=== PATIENT | male | born 1950 | race Caucasian/White ===

== ENCOUNTER 2021-10-03 16:22 | Inpatient (IN) ==
[2021-10-03] MEDS ORDERED: Naloxone 0.4 MG/ML INJ IVP PRN (18:38)
[2021-10-03] MEDS ORDERED: Acetaminophen 325 MG TABLET PO PRN (18:38)
[2021-10-03] MEDS: Ringers Solution, Lactated 1,000 ML IVC SCH (19:26)
[2021-10-03] MEDS: Piperacillin/Tazobactam 3.375 GM in 0.9 % Sodium Chloride Mini Bag 100 ML IVPB SCH (23:01)
[2021-10-04 02:12] LABS: Basophils % 0.1 %; Immature Granulocytes % 0.3 % (0-4)
[2021-10-04 02:15] LABS: Hematocrit 36.4 % (37.5-50.1); Hemoglobin 11.4 g/dL (12.9-16.9); Immature Platelets 5.7 % (1.1-6.1); Lymphocytes % 8.5 %; Mean Corpuscular HGB Conc 31.3 g/dL (31.6-35.5); Mean Corpuscular Hemoglobin 30.7 pg (28.0-33.3); Mean Corpuscular Volume 98.1 fL (83.0-100.0); Mean Platelet Volume 11.5 fL (9.4-12.4); Monocytes # 0.7 K/mcL (0.0-1.3); Monocytes % 5.9 %; Neutrophils # 9.9 K/mcL (1.6-8.9); Red Blood Count 3.71 M/mcL (4.19-5.50); Red Cell Distribution Width 13.9 % (11.5-14.5); Segmented Neutrophils % 85.2 %; White Blood Count 11.6 K/mcL (4.3-11.1)
[2021-10-04 02:19] LABS: Platelet Count 79 K/mcL (140-400)
[2021-10-04 02:49] LABS: Alanine Aminotransferase 138 Units/L (7-52); Albumin 2.7 g/dL (3.5-5.7); Albumin/Globulin Ratio 0.9 (1.1-2.2); Alkaline Phosphatase 48 Units/L (34-104); Aspartate Amino Transferase 346 Units/L (13-39); BUN/Creatinine Ratio 24 (6-26); Bilirubin,Total 0.7 mg/dL (0.3-1.0); Blood Urea Nitrogen 140 mg/dL (8-23); Calcium 7.3 mg/dL (8.6-10.3); Carbon Dioxide 18 mEq/L (23-29); Chloride 124 mEq/L (98-107); Creatine Kinase > 20000 Units/L (30-223); Glucose 112 mg/dL (70-105); Osmolality,Calculated 368 (280-300); Potassium 5.2 mEq/L (3.5-5.1); Sodium 156 mEq/L (136-145); Total Protein 5.7 g/dL (6.4-8.9); eGFR For African Americans 12 (> 60); eGFR For Non-African Americans 10 (> 60)
[2021-10-04] MEDS: Ringers Solution, Lactated 1,000 ML IVC SCH (03:14)
[2021-10-04] MEDS ORDERED: *HR* Enoxaparin 30 MG/0.3 ML SYRINGE SQ SCH (06:00)
[2021-10-04] MEDS: Piperacillin/Tazobactam 3.375 GM in 0.9 % Sodium Chloride Mini Bag 100 ML IVPB SCH ×2 (07:09→17:08)
[2021-10-04] MEDS ORDERED: D5% in 0.45% NACL 1,000 ML IVC SCH (09:30)
[2021-10-04] MEDS ORDERED: Carbidopa/Levodopa 25/100 TABLET PO SCH ×2 (12:00→21:00)
[2021-10-04] MEDS ORDERED: Naloxone 0.4 MG/ML INJ IVP PRN (14:22)
[2021-10-04] MEDS: D5% in 0.45% NACL 1,000 ML IVC SCH ×2 (14:56→23:18)
[2021-10-04] MEDS ORDERED: rOPINIRole 1 MG TABLET PO SCH (15:00)
[2021-10-04 15:33] LABS: Sodium, Urine 50.3 mEq/L
[2021-10-04] MEDS: rOPINIRole 1 MG TABLET PO SCH ×2 (17:07→20:51)
[2021-10-04] MEDS: Carbidopa/Levodopa 25/100 TABLET PO SCH ×2 (17:08→20:52)
[2021-10-04 19:20] LABS: C.difficile Toxin A/B Gene PCR Not detected (Not detect); Campylobacter by PCR Not detected (Not detect); Enteroaggregative E.coli(EAEC) Not detected (Not detect); Plesiomonas shigelloides PCR Not detected (Not detect); Salmonella PCR Not detected (Not detect); Vibrio PCR Not detected (Not detect); Vibrio cholerae PCR Not detected (Not detect); Yersinia enterocolitica PCR Not detected (Not detect)
[2021-10-04 19:21] LABS: Adenovirus F 40/41 PCR Not detected (Not detect); Astrovirus PCR Not detected (Not detect); Cryptosporidium by PCR Not detected (Not detect); Cyclospora cayetanensis PCR Not detected (Not detect); Entamoeba histolytica PCR Not detected (Not detect); Enteropathogenic E.coli(EPEC) DETECTED (Not detect); Enterotoxigenic E.coli (ETEC) Not detected (Not detect); Giardia lamblia PCR Not detected (Not detect); Norovirus GI/GII PCR Not detected (Not detect); Rotavirus A PCR Not detected (Not detect); Sapovirus PCR Not detected (Not detect); Shig/EnteroinvasiveE coli EIEC Not detected (Not detect); Shigalike tox-prod E coli STEC Not detected (Not detect)
[2021-10-05 02:10] LABS: Hematocrit 35.1 % (37.5-50.1); Immature Platelets 5.9 % (1.1-6.1); Mean Corpuscular HGB Conc 31.3 g/dL (31.6-35.5); Mean Corpuscular Hemoglobin 31.1 pg (28.0-33.3); Mean Corpuscular Volume 99.2 fL (83.0-100.0); Mean Platelet Volume 11.9 fL (9.4-12.4); Red Blood Count 3.54 M/mcL (4.19-5.50); Red Cell Distribution Width 13.6 % (11.5-14.5); White Blood Count 11.7 K/mcL (4.3-11.1)
[2021-10-05 02:14] LABS: Platelet Count 63 K/mcL (140-400)
[2021-10-05 02:37] LABS: Lymphocytes # 0.7 K/mcL (0.6-4.6); Monocytes # 0.5 K/mcL (0.0-1.3); Neutrophils # 10.5 K/mcL (1.6-8.9); Platelet Estimate Decreased (Normal)
[2021-10-05 02:47] LABS: Calcium 7.4 mg/dL (8.6-10.3); Potassium 5.2 mEq/L (3.5-5.1)
[2021-10-05] MEDS: Piperacillin/Tazobactam 3.375 GM in 0.9 % Sodium Chloride Mini Bag 100 ML IVPB SCH ×2 (05:59→17:45)
[2021-10-05] MEDS ORDERED: *HR* Enoxaparin 30 MG/0.3 ML SYRINGE SQ SCH (06:00)
[2021-10-05] MEDS ORDERED: Aspirin 81 MG TAB.CHEW PO SCH (09:00)
[2021-10-05] MEDS: Aspirin 81 MG TAB.CHEW PO SCH (12:07)
[2021-10-05] MEDS: D5% in 0.45% NACL 1,000 ML IVC SCH ×2 (12:07→20:20)
[2021-10-05] MEDS: Carbidopa/Levodopa 25/100 TABLET PO SCH ×4 (12:07→20:23)
[2021-10-05] MEDS: rOPINIRole 1 MG TABLET PO SCH ×3 (12:07→20:23)
[2021-10-06] MEDS: D5% in 0.45% NACL 1,000 ML IVC SCH (05:18)
[2021-10-06] MEDS: Piperacillin/Tazobactam 3.375 GM in 0.9 % Sodium Chloride Mini Bag 100 ML IVPB SCH ×2 (05:18→17:54)
[2021-10-06] MEDS ORDERED: E-Z-PAQUE (BARIUM SULF) SUSP 1 BOTTLE PO ONE (10:55)
[2021-10-06] MEDS ORDERED: E-Z-HD (BARIUM SULF) SUSPENSION PO ONE (10:55)
[2021-10-06 11:05] LABS: Basophils % 0.1 %; Eosinophils # 0.1 K/mcL (0.0-0.6); Eosinophils % 1.1 %; Hematocrit 34.5 % (37.5-50.1); Hemoglobin 11.1 g/dL (12.9-16.9); Immature Granulocytes % 0.8 % (0-4); Lymphocytes # 0.7 K/mcL (0.6-4.6); Lymphocytes % 5.4 %; Mean Corpuscular HGB Conc 32.2 g/dL (31.6-35.5); Mean Corpuscular Hemoglobin 31.3 pg (28.0-33.3); Mean Corpuscular Volume 97.2 fL (83.0-100.0); Mean Platelet Volume 12.2 fL (9.4-12.4); Monocytes # 0.5 K/mcL (0.0-1.3); Monocytes % 4.1 %; Red Blood Count 3.55 M/mcL (4.19-5.50); Red Cell Distribution Width 13.9 % (11.5-14.5); Segmented Neutrophils % 88.5 %; White Blood Count 12.4 K/mcL (4.3-11.1)
[2021-10-06 11:07] LABS: Platelet Count 80 K/mcL (140-400)
[2021-10-06 11:28] LABS: Magnesium 2.4 mg/dL (1.6-2.6); Phosphorous 4.6 mg/dL (2.7-4.5)
[2021-10-06 11:54] LABS: Calcium 7.8 mg/dL (8.6-10.3)
[2021-10-06] MEDS: rOPINIRole 1 MG TABLET PO SCH ×3 (12:14→19:32)
[2021-10-06] MEDS: Carbidopa/Levodopa 25/100 TABLET PO SCH ×4 (12:14→19:32)
[2021-10-06] MEDS: Aspirin 81 MG TAB.CHEW PO SCH (12:15)
[2021-10-06] MEDS: D5% in Water 1,000 ML IVC SCH ×2 (14:29→22:22)
[2021-10-07 02:00] LABS: Mean Corpuscular HGB Conc 30.7 g/dL (31.6-35.5); Mean Corpuscular Hemoglobin 31.1 pg (28.0-33.3); Mean Corpuscular Volume 101.2 fL (83.0-100.0)
[2021-10-07 02:02] LABS: Basophils % 0.2 %; Eosinophils # 0.2 K/mcL (0.0-0.6); Eosinophils % 1.5 %; Hematocrit 33.2 % (37.5-50.1); Hemoglobin 10.2 g/dL (12.9-16.9); Immature Granulocytes % 0.7 % (0-4); Immature Platelets 7.3 % (1.1-6.1); Lymphocytes # 0.7 K/mcL (0.6-4.6); Lymphocytes % 6.7 %; Mean Platelet Volume 11.9 fL (9.4-12.4); Monocytes # 0.6 K/mcL (0.0-1.3); Monocytes % 5.3 %; Red Blood Count 3.28 M/mcL (4.19-5.50); Red Cell Distribution Width 13.9 % (11.5-14.5); Segmented Neutrophils % 85.6 %; White Blood Count 10.8 K/mcL (4.3-11.1)
[2021-10-07 02:05] LABS: Neutrophils # 9.2 K/mcL (1.6-8.9); Platelet Count 78 K/mcL (140-400)
[2021-10-07 02:21] LABS: Calcium 7.5 mg/dL (8.6-10.3); Magnesium 2.1 mg/dL (1.6-2.6); Phosphorous 4.3 mg/dL (2.7-4.5); Potassium 4.1 mEq/L (3.5-5.1)
[2021-10-07] MEDS: Piperacillin/Tazobactam 3.375 GM in 0.9 % Sodium Chloride Mini Bag 100 ML IVPB SCH ×2 (05:36→17:59)
[2021-10-07] MEDS: D5% in 0.45% NACL 1,000 ML IVC SCH (07:25)
[2021-10-07] MEDS: rOPINIRole 1 MG TABLET PO SCH ×3 (08:25→19:39)
[2021-10-07] MEDS: D5% in Water 1,000 ML IVC SCH ×2 (08:25→12:15)
[2021-10-07] MEDS: Aspirin 81 MG TAB.CHEW PO SCH (08:26)
[2021-10-07] MEDS: Carbidopa/Levodopa 25/100 TABLET PO SCH ×4 (08:26→19:39)
[2021-10-08] MEDS: D5% in Water 1,000 ML IVC SCH ×2 (01:51→10:11)
[2021-10-08] MEDS: Piperacillin/Tazobactam 3.375 GM in 0.9 % Sodium Chloride Mini Bag 100 ML IVPB SCH ×2 (06:01→17:01)
[2021-10-08] MEDS: Aspirin 81 MG TAB.CHEW PO SCH (07:38)
[2021-10-08] MEDS: rOPINIRole 1 MG TABLET PO SCH ×3 (07:39→19:59)
[2021-10-08] MEDS: Carbidopa/Levodopa 25/100 TABLET PO SCH ×4 (07:39→19:55)
[2021-10-08 08:45] LABS: Potassium 3.7 mEq/L (3.5-5.1)
[2021-10-08 09:12] LABS: Basophils % 0.3 %; Eosinophils # 0.3 K/mcL (0.0-0.6); Eosinophils % 2.1 %; Hematocrit 33.7 % (37.5-50.1); Hemoglobin 10.7 g/dL (12.9-16.9); Immature Granulocytes % 2.1 % (0-4); Lymphocytes # 1.3 K/mcL (0.6-4.6); Lymphocytes % 9.7 %; Mean Corpuscular HGB Conc 31.8 g/dL (31.6-35.5); Mean Corpuscular Volume 97.7 fL (83.0-100.0); Monocytes # 0.6 K/mcL (0.0-1.3); Monocytes % 4.6 %; Neutrophils # 10.6 K/mcL (1.6-8.9); Platelet Count 100 K/mcL (140-400); Red Blood Count 3.45 M/mcL (4.19-5.50); Red Cell Distribution Width 13.7 % (11.5-14.5); Segmented Neutrophils % 81.2 %
[2021-10-08] MEDS: D5% in 0.45% NACL 1,000 ML IVC SCH ×2 (10:20→19:55)
[2021-10-09 02:57] LABS: Basophils % 0.2 %; Eosinophils # 0.2 K/mcL (0.0-0.6); Eosinophils % 1.2 %; Hemoglobin 9.9 g/dL (12.9-16.9); Immature Granulocytes % 1.9 % (0-4); Lymphocytes # 1.1 K/mcL (0.6-4.6); Lymphocytes % 8.7 %; Mean Corpuscular HGB Conc 31.9 g/dL (31.6-35.5); Mean Corpuscular Hemoglobin 31.7 pg (28.0-33.3); Mean Corpuscular Volume 99.4 fL (83.0-100.0); Mean Platelet Volume 11.9 fL (9.4-12.4); Monocytes # 0.6 K/mcL (0.0-1.3); Monocytes % 5.1 %; Neutrophils # 10.3 K/mcL (1.6-8.9); Platelet Count 116 K/mcL (140-400); Red Blood Count 3.12 M/mcL (4.19-5.50); Red Cell Distribution Width 13.6 % (11.5-14.5); Segmented Neutrophils % 82.9 %; White Blood Count 12.4 K/mcL (4.3-11.1)
[2021-10-09 03:14] LABS: Calcium 7.8 mg/dL (8.6-10.3); Potassium 3.5 mEq/L (3.5-5.1)
[2021-10-09] MEDS: Piperacillin/Tazobactam 3.375 GM in 0.9 % Sodium Chloride Mini Bag 100 ML IVPB SCH (05:20)
[2021-10-09] MEDS: D5% in 0.45% NACL 1,000 ML IVC SCH ×2 (05:20→14:39)
[2021-10-09] MEDS ORDERED: *HR* HYDROcodone/Acet 5/325 mg TABLET PO ONE (06:13)
[2021-10-09] MEDS: Carbidopa/Levodopa 25/100 TABLET PO SCH ×4 (10:03→21:25)
[2021-10-09] MEDS: Aspirin 81 MG TAB.CHEW PO SCH (10:03)
[2021-10-09] MEDS: rOPINIRole 1 MG TABLET PO SCH ×3 (10:04→21:25)
[2021-10-09] MEDS: *HR* Heparin 5,000 UNIT/ML VIAL SQ SCH ×2 (13:12→21:25)
[2021-10-09] MEDS: Lactobacillus 1 EACH CAP.SPRINK PO SCH (13:12)
[2021-10-09] MEDS: Amoxicillin/Clavulanate 500 MG TABLET PO SCH (17:14)
[2021-10-10] MEDS: D5% in 0.45% NACL 1,000 ML IVC SCH ×3 (01:07→23:47)
[2021-10-10 02:06] LABS: Basophils % 0.3 %; Eosinophils # 0.2 K/mcL (0.0-0.6); Eosinophils % 1.5 %; Hematocrit 29.3 % (37.5-50.1); Hemoglobin 9.3 g/dL (12.9-16.9); Immature Granulocytes % 1.8 % (0-4); Lymphocytes # 1.3 K/mcL (0.6-4.6); Lymphocytes % 10.4 %; Mean Corpuscular HGB Conc 31.7 g/dL (31.6-35.5); Mean Corpuscular Hemoglobin 31.3 pg (28.0-33.3); Mean Corpuscular Volume 98.7 fL (83.0-100.0); Mean Platelet Volume 11.8 fL (9.4-12.4); Monocytes # 0.6 K/mcL (0.0-1.3); Monocytes % 4.8 %; Neutrophils # 9.7 K/mcL (1.6-8.9); Platelet Count 156 K/mcL (140-400); Red Blood Count 2.97 M/mcL (4.19-5.50); Red Cell Distribution Width 13.4 % (11.5-14.5); Segmented Neutrophils % 81.2 %
[2021-10-10 02:09] LABS: Calcium 7.9 mg/dL (8.6-10.3); Potassium 3.5 mEq/L (3.5-5.1)
[2021-10-10] MEDS: *HR* Heparin 5,000 UNIT/ML VIAL SQ SCH ×3 (05:57→20:15)
[2021-10-10] MEDS: Lactobacillus 1 EACH CAP.SPRINK PO SCH (09:36)
[2021-10-10] MEDS: Carbidopa/Levodopa 25/100 TABLET PO SCH ×4 (09:36→20:15)
[2021-10-10] MEDS: Amoxicillin/Clavulanate 500 MG TABLET PO SCH ×2 (09:36→16:38)
[2021-10-10] MEDS: Aspirin 81 MG TAB.CHEW PO SCH (09:36)
[2021-10-10] MEDS: Acetaminophen 325 MG TABLET PO PRN (09:45)
[2021-10-10] MEDS: rOPINIRole 1 MG TABLET PO SCH ×4 (09:55→20:16)
[2021-10-10] MEDS ORDERED: 0.9 % Sodium Chloride 1,000 ML IVC ONE (13:19)
[2021-10-11] MEDS: Acetaminophen 325 MG TABLET PO PRN ×2 (03:12→12:35)
[2021-10-11] MEDS: *HR* Heparin 5,000 UNIT/ML VIAL SQ SCH ×3 (04:54→19:58)
[2021-10-11] MEDS: Amoxicillin/Clavulanate 500 MG TABLET PO SCH ×2 (07:42→16:57)
[2021-10-11] MEDS: D5% in 0.45% NACL 1,000 ML IVC SCH ×3 (07:42→20:28)
[2021-10-11] MEDS: rOPINIRole 1 MG TABLET PO SCH ×3 (07:42→19:58)
[2021-10-11] MEDS: Aspirin 81 MG TAB.CHEW PO SCH (07:42)
[2021-10-11] MEDS: Lactobacillus 1 EACH CAP.SPRINK PO SCH (07:42)
[2021-10-11] MEDS: Carbidopa/Levodopa 25/100 TABLET PO SCH ×4 (07:44→19:58)
[2021-10-11 07:56] LABS: Calcium 7.8 mg/dL (8.6-10.3); Potassium 3.5 mEq/L (3.5-5.1)
[2021-10-12 03:24] LABS: Calcium 7.7 mg/dL (8.6-10.3); Potassium 3.4 mEq/L (3.5-5.1)
[2021-10-12] MEDS: *HR* Heparin 5,000 UNIT/ML VIAL SQ SCH ×3 (05:06→20:54)
[2021-10-12] MEDS: D5% in 0.45% NACL 1,000 ML IVC SCH ×2 (06:18→15:43)
[2021-10-12] MEDS: Aspirin 81 MG TAB.CHEW PO SCH (08:53)
[2021-10-12] MEDS: Carbidopa/Levodopa 25/100 TABLET PO SCH ×4 (08:53→20:53)
[2021-10-12] MEDS: Amoxicillin/Clavulanate 500 MG TABLET PO SCH (08:54)
[2021-10-12] MEDS: rOPINIRole 1 MG TABLET PO SCH ×3 (08:54→20:53)
[2021-10-12] MEDS: Lactobacillus 1 EACH CAP.SPRINK PO SCH (08:54)
[2021-10-13 02:45] LABS: Calcium 8.2 mg/dL (8.6-10.3); Magnesium 1.3 mg/dL (1.6-2.6)
[2021-10-13] MEDS: *HR* Heparin 5,000 UNIT/ML VIAL SQ SCH ×3 (04:54→21:29)
[2021-10-13] MEDS: Lactobacillus 1 EACH CAP.SPRINK PO SCH (10:32)
[2021-10-13] MEDS: Magnesium Oxide 400 MG TABLET PO SCH ×2 (10:32→21:30)
[2021-10-13] MEDS: Aspirin 81 MG TAB.CHEW PO SCH (10:32)
[2021-10-13] MEDS: rOPINIRole 1 MG TABLET PO SCH ×3 (10:32→21:29)
[2021-10-13] MEDS: Acetaminophen 325 MG TABLET PO PRN (10:32)
[2021-10-13] MEDS: Carbidopa/Levodopa 25/100 TABLET PO SCH ×4 (10:58→21:30)
[2021-10-13] MEDS: D5% in 0.45% NACL 1,000 ML IVC SCH (16:21)
[2021-10-14] MEDS: D5% in 0.45% NACL 1,000 ML IVC SCH ×3 (04:04→13:44)
[2021-10-14] MEDS: *HR* Heparin 5,000 UNIT/ML VIAL SQ SCH ×3 (04:05→22:06)
[2021-10-14] MEDS: Acetaminophen 325 MG TABLET PO PRN ×2 (05:04→22:05)
[2021-10-14 06:29] LABS: Calcium 8.4 mg/dL (8.6-10.3); Magnesium 1.9 mg/dL (1.6-2.6); Potassium 4.3 mEq/L (3.5-5.1)
[2021-10-14] MEDS: Aspirin 81 MG TAB.CHEW PO SCH (09:13)
[2021-10-14] MEDS: Carbidopa/Levodopa 25/100 TABLET PO SCH ×4 (09:13→22:06)
[2021-10-14] MEDS: Magnesium Oxide 400 MG TABLET PO SCH ×2 (09:13→22:06)
[2021-10-14] MEDS: rOPINIRole 1 MG TABLET PO SCH ×3 (09:13→22:06)
[2021-10-14] MEDS: Lactobacillus 1 EACH CAP.SPRINK PO SCH (09:13)
[2021-10-15] MEDS: D5% in 0.45% NACL 1,000 ML IVC SCH (00:52)
[2021-10-15 03:28] LABS: Basophils % 0.2 %; Eosinophils # 0.2 K/mcL (0.0-0.6); Eosinophils % 1.2 %; Hematocrit 24.2 % (37.5-50.1); Immature Granulocytes % 0.6 % (0-4); Lymphocytes % 7.5 %; Mean Corpuscular HGB Conc 33.1 g/dL (31.6-35.5); Mean Corpuscular Hemoglobin 32.1 pg (28.0-33.3); Mean Corpuscular Volume 97.2 fL (83.0-100.0); Mean Platelet Volume 10.6 fL (9.4-12.4); Monocytes # 0.8 K/mcL (0.0-1.3); Monocytes % 5.4 %; Neutrophils # 11.7 K/mcL (1.6-8.9); Platelet Count 269 K/mcL (140-400); Red Blood Count 2.49 M/mcL (4.19-5.50); Red Cell Distribution Width 14.3 % (11.5-14.5); Segmented Neutrophils % 85.1 %; White Blood Count 13.8 K/mcL (4.3-11.1)
[2021-10-15 03:53] LABS: Calcium 7.8 mg/dL (8.6-10.3); Magnesium 1.9 mg/dL (1.6-2.6); Potassium 3.9 mEq/L (3.5-5.1)
[2021-10-15] MEDS: *HR* Heparin 5,000 UNIT/ML VIAL SQ SCH ×3 (06:56→21:23)
[2021-10-15] MEDS: Aspirin 81 MG TAB.CHEW PO SCH (09:35)
[2021-10-15] MEDS: Lactobacillus 1 EACH CAP.SPRINK PO SCH (09:35)
[2021-10-15] MEDS: Magnesium Oxide 400 MG TABLET PO SCH ×2 (09:35→21:23)
[2021-10-15] MEDS: rOPINIRole 1 MG TABLET PO SCH ×3 (09:35→21:22)
[2021-10-15] MEDS: Carbidopa/Levodopa 25/100 TABLET PO SCH ×4 (09:42→21:23)
[2021-10-15] MEDS: Sodium Bicarbonate 75 MEQ in 0.45 % Sodium Chloride 1,000 ML IVC SCH ×2 (09:43→21:59)
[2021-10-16 02:52] LABS: Basophils % 0.4 %; Eosinophils # 0.1 K/mcL (0.0-0.6); Eosinophils % 1.3 %; Hematocrit 22.7 % (37.5-50.1); Hemoglobin 7.3 g/dL (12.9-16.9); Immature Granulocytes % 0.5 % (0-4); Lymphocytes # 1.5 K/mcL (0.6-4.6); Lymphocytes % 13.8 %; Mean Corpuscular HGB Conc 32.2 g/dL (31.6-35.5); Mean Corpuscular Hemoglobin 31.5 pg (28.0-33.3); Mean Corpuscular Volume 97.8 fL (83.0-100.0); Mean Platelet Volume 10.8 fL (9.4-12.4); Monocytes # 0.6 K/mcL (0.0-1.3); Monocytes % 6.1 %; Neutrophils # 8.2 K/mcL (1.6-8.9); Platelet Count 276 K/mcL (140-400); Red Blood Count 2.32 M/mcL (4.19-5.50); Red Cell Distribution Width 14.4 % (11.5-14.5); Segmented Neutrophils % 77.9 %; White Blood Count 10.5 K/mcL (4.3-11.1)
[2021-10-16 03:15] LABS: Albumin 2.2 g/dL (3.5-5.7); Albumin/Globulin Ratio 0.7 (1.1-2.2); Bilirubin,Total 0.5 mg/dL (0.3-1.0); Calcium 7.5 mg/dL (8.6-10.3); Globulin 3.2 g/dL (2.4-3.5); Magnesium 1.5 mg/dL (1.6-2.6); Phosphorous 2.8 mg/dL (2.7-4.5); Potassium 4.2 mEq/L (3.5-5.1); Total Protein 5.4 g/dL (6.4-8.9)
[2021-10-16] MEDS: *HR* Heparin 5,000 UNIT/ML VIAL SQ SCH ×2 (05:56→14:34)
[2021-10-16] MEDS: Sodium Bicarbonate 75 MEQ in 0.45 % Sodium Chloride 1,000 ML IVC SCH (05:57)
[2021-10-16] MEDS: Aspirin 81 MG TAB.CHEW PO SCH (08:29)
[2021-10-16] MEDS: Magnesium Oxide 400 MG TABLET PO SCH (08:29)
[2021-10-16] MEDS: Lactobacillus 1 EACH CAP.SPRINK PO SCH (08:32)
[2021-10-16] MEDS: Carbidopa/Levodopa 25/100 TABLET PO SCH ×3 (08:33→17:46)
[2021-10-16] MEDS: rOPINIRole 1 MG TABLET PO SCH ×2 (08:34→17:45)
[2021-10-16 14:21] VITALS: BP 102/60; PULSE 73; TEMP 98.8; O2SAT 98
[2021-10-16 17:29] LABS: Influenza A PCR Negative (Negative); Influenza B PCR Negative (Negative); Resp. Syncytial Virus PCR Negative (Negative)
[2021-10-16 17:34] LABS: SARS-CoV-2 by PCR (In House) Negative (Negative)
[2021-10-16] MEDS: Moderna Covid-19 Vaccine 100MCG/0.5mL IM ONE ×2 (17:47→17:56)
== END 2021-10-16 20:45 | DRG 871 ==
LOC: ICNU 18:20 → SUATTDRO 18:20 → 2ANU 10-04 15:39
PROVIDERS: ADMIT Family Medicine; ATTEND Family Medicine

== ENCOUNTER 2022-01-13 14:31 | Inpatient (IN) ==
[2022-01-13] MEDS ORDERED: Naloxone 0.4 MG/ML INJ IVP PRN (18:00)
[2022-01-13] MEDS ORDERED: Ondansetron 4 MG/2 ML VIAL IVP PRN (18:00)
[2022-01-13] MEDS: 0.9 % Sodium Chloride 1,000 ML IVC SCH (19:14)
[2022-01-14 02:41] LABS: Basophils % 0.1 %; Eosinophils % 0.1 %; Hematocrit 31.7 % (37.5-50.1); Hemoglobin 9.8 g/dL (12.9-16.9); Immature Granulocytes % 0.9 % (0-4); Lymphocytes # 0.4 K/mcL (0.6-4.6); Lymphocytes % 5.3 %; Mean Corpuscular HGB Conc 30.9 g/dL (31.6-35.5); Mean Corpuscular Hemoglobin 28.2 pg (28.0-33.3); Mean Corpuscular Volume 91.4 fL (83.0-100.0); Mean Platelet Volume 10.9 fL (9.4-12.4); Monocytes # 0.3 K/mcL (0.0-1.3); Monocytes % 3.6 %; Platelet Count 142 K/mcL (140-400); Red Blood Count 3.47 M/mcL (4.19-5.50); Red Cell Distribution Width 16.2 % (11.5-14.5); White Blood Count 7.8 K/mcL (4.3-11.1)
[2022-01-14 03:01] LABS: Calcium 7.5 mg/dL (8.6-10.3); Potassium 3.8 mEq/L (3.5-5.1)
[2022-01-14] MEDS: 0.9 % Sodium Chloride 1,000 ML IVC SCH (08:16)
[2022-01-14] MEDS: Carbidopa/Levodopa 25/100 TABLET PO SCH ×4 (08:18→20:56)
[2022-01-14] MEDS: rOPINIRole 1 MG, rOPINIRole 3 MG PO SCH ×3 (08:18→20:56)
[2022-01-14] MEDS ORDERED: NON-FORMULARY MEDICATION 1 EACH EACH (Lactose-Reduced Food [Ensure Liquid] 237 ML Liquid) PO SCH (09:00)
[2022-01-14] MEDS ORDERED: cefTRIAXone 1,000 MG in Water for inj. (sterile) 10 ML IVP SCH (09:00)
[2022-01-14] MEDS ORDERED: NON-FORMULARY MEDICATION 1 EACH EACH (Ropinirole Hcl [Requip] 4 MG Tablet) PO SCH (09:00)
[2022-01-14 12:14] LABS: Albumin 2.2 g/dL (3.5-5.7); Albumin/Globulin Ratio 0.6 (1.1-2.2); Bilirubin,Direct 0.1 mg/dL (0.0-0.2); Bilirubin,Indirect 0.4 mg/dL (0.0-1.0); Bilirubin,Total 0.5 mg/dL (0.3-1.0); Globulin 3.6 g/dL (2.4-3.5); Total Protein 5.8 g/dL (6.4-8.9)
[2022-01-14 12:21] LABS: Uric Acid 13.5 mg/dL (2.3-7.6)
[2022-01-14 13:23] LABS: Bilirubin,Urine Negative (Negative); Blood,Urine Large (Negative); Clarity,Urine Turbid (Clear); Color,Urine Yellow (Yellow); Glucose,Urine (UA) Normal (Normal); Ketones,Urine Negative (Negative); Leukocyte Esterase,Urine Large (Negative); Mucus,Urine Few per lpf (None-Few); Nitrite,Urine Negative (Negative); Protein,Urine 100 mg/dL (Neg-Trace); RBC,Urine TNTC per hpf (0-3); Renal Epithelial Cells,Urine Few per hpf (None-Few); Specific Gravity,Urine 1.013 (1.010-1.025); Urobilinogen,Urine Normal (Normal); WBC,Urine TNTC per hpf (0-3)
[2022-01-14] MEDS: *HR* Heparin 5,000 UNIT/ML VIAL SQ SCH ×2 (13:25→20:56)
[2022-01-14 14:44] LABS: Protein/Creatinine Ratio,Urine 1.97 mg/mg (0.00-0.20); Sodium, Urine 21.1 mEq/L
[2022-01-14] MEDS ORDERED: 0.9 % Sodium Chloride 500 ML IVC ONE (15:07)
[2022-01-15] MEDS: *HR* Heparin 5,000 UNIT/ML VIAL SQ SCH ×3 (05:14→22:00)
[2022-01-15] MEDS: Acetaminophen 325 MG TABLET PO PRN (05:14)
[2022-01-15 07:21] LABS: Calcium 7.1 mg/dL (8.6-10.3); Potassium 3.9 mEq/L (3.5-5.1)
[2022-01-15 07:23] LABS: Red Cell Distribution Width 16.3 % (11.5-14.5)
[2022-01-15 07:29] LABS: Hematocrit 25.6 % (37.5-50.1); Hemoglobin 8.2 g/dL (12.9-16.9); Mean Corpuscular Hemoglobin 28.7 pg (28.0-33.3); Mean Corpuscular Volume 89.5 fL (83.0-100.0); Mean Platelet Volume 12.3 fL (9.4-12.4); Red Blood Count 2.86 M/mcL (4.19-5.50); White Blood Count 7.7 K/mcL (4.3-11.1)
[2022-01-15] MEDS: rOPINIRole 1 MG, rOPINIRole 3 MG PO SCH ×3 (09:01→21:59)
[2022-01-15] MEDS: Carbidopa/Levodopa 25/100 TABLET PO SCH ×4 (09:03→21:59)
[2022-01-15] MEDS: cefTRIAXone 2,000 MG in 0.9 % Sodium Chloride 20 ML IVP SCH (09:04)
[2022-01-15] MEDS: 0.9 % Sodium Chloride 1,000 ML IVC SCH ×2 (09:38→22:01)
[2022-01-16] MEDS: *HR* Heparin 5,000 UNIT/ML VIAL SQ SCH ×3 (03:53→20:20)
[2022-01-16] MEDS: Acetaminophen 325 MG TABLET PO PRN ×2 (03:53→20:07)
[2022-01-16 09:14] LABS: Basophils % 0.2 %; Eosinophils # 0.4 K/mcL (0.0-0.6); Eosinophils % 4.4 %; Hematocrit 28.7 % (37.5-50.1); Hemoglobin 8.7 g/dL (12.9-16.9); Immature Granulocytes % 0.8 % (0-4); Lymphocytes # 0.9 K/mcL (0.6-4.6); Lymphocytes % 10.4 %; Mean Corpuscular HGB Conc 30.3 g/dL (31.6-35.5); Mean Corpuscular Hemoglobin 28.3 pg (28.0-33.3); Mean Corpuscular Volume 93.5 fL (83.0-100.0); Mean Platelet Volume 12.8 fL (9.4-12.4); Monocytes # 0.3 K/mcL (0.0-1.3); Monocytes % 3.3 %; Neutrophils # 7.1 K/mcL (1.6-8.9); Platelet Count 105 K/mcL (140-400); Red Blood Count 3.07 M/mcL (4.19-5.50); Red Cell Distribution Width 16.5 % (11.5-14.5); Segmented Neutrophils % 80.9 %; White Blood Count 8.8 K/mcL (4.3-11.1)
[2022-01-16 09:20] LABS: Calcium 7.3 mg/dL (8.6-10.3); Potassium 3.6 mEq/L (3.5-5.1)
[2022-01-16] MEDS: rOPINIRole 1 MG, rOPINIRole 3 MG PO SCH ×3 (09:40→20:07)
[2022-01-16] MEDS: cefTRIAXone 2,000 MG in 0.9 % Sodium Chloride 20 ML IVP SCH (09:40)
[2022-01-16] MEDS: Carbidopa/Levodopa 25/100 TABLET PO SCH ×4 (09:41→20:07)
[2022-01-16] MEDS: 0.9 % Sodium Chloride 1,000 ML IVC SCH (18:05)
[2022-01-16] MEDS ORDERED: Sennosides/Docusate Sodium TABLET PO PRN (18:38)
[2022-01-17] MEDS: *HR* Heparin 5,000 UNIT/ML VIAL SQ SCH ×3 (05:41→20:54)
[2022-01-17 05:48] LABS: Basophils % 0.2 %; Eosinophils # 0.5 K/mcL (0.0-0.6); Eosinophils % 5.1 %; Hematocrit 28.5 % (37.5-50.1); Hemoglobin 8.8 g/dL (12.9-16.9); Immature Granulocytes % 0.8 % (0-4); Lymphocytes # 0.9 K/mcL (0.6-4.6); Lymphocytes % 8.8 %; Mean Corpuscular HGB Conc 30.9 g/dL (31.6-35.5); Mean Corpuscular Hemoglobin 28.5 pg (28.0-33.3); Mean Corpuscular Volume 92.2 fL (83.0-100.0); Mean Platelet Volume 11.8 fL (9.4-12.4); Monocytes # 0.3 K/mcL (0.0-1.3); Monocytes % 3.5 %; Platelet Count 149 K/mcL (140-400); Red Blood Count 3.09 M/mcL (4.19-5.50); Red Cell Distribution Width 16.7 % (11.5-14.5); Segmented Neutrophils % 81.6 %; White Blood Count 9.9 K/mcL (4.3-11.1)
[2022-01-17 06:08] LABS: Calcium 7.6 mg/dL (8.6-10.3); Potassium 3.7 mEq/L (3.5-5.1)
[2022-01-17] MEDS: rOPINIRole 1 MG, rOPINIRole 3 MG PO SCH ×3 (09:07→20:54)
[2022-01-17] MEDS: Carbidopa/Levodopa 25/100 TABLET PO SCH ×4 (09:07→20:55)
[2022-01-17] MEDS: cefTRIAXone 2,000 MG in 0.9 % Sodium Chloride 20 ML IVP SCH (09:16)
[2022-01-17] MEDS: 0.9 % Sodium Chloride 1,000 ML IVC SCH (16:01)
[2022-01-18] MEDS: Acetaminophen 325 MG TABLET PO PRN (02:28)
[2022-01-18] MEDS ORDERED: Gabapentin 100 MG CAPSULE PO ONE (03:45)
[2022-01-18 04:50] LABS: Basophils % 0.3 %; Eosinophils # 0.4 K/mcL (0.0-0.6); Eosinophils % 3.9 %; Hematocrit 27.1 % (37.5-50.1); Hemoglobin 8.5 g/dL (12.9-16.9); Immature Granulocytes % 0.7 % (0-4); Lymphocytes # 1.3 K/mcL (0.6-4.6); Mean Corpuscular HGB Conc 31.4 g/dL (31.6-35.5); Mean Corpuscular Hemoglobin 28.4 pg (28.0-33.3); Mean Corpuscular Volume 90.6 fL (83.0-100.0); Mean Platelet Volume 11.5 fL (9.4-12.4); Monocytes # 0.4 K/mcL (0.0-1.3); Monocytes % 3.6 %; Neutrophils # 8.1 K/mcL (1.6-8.9); Platelet Count 211 K/mcL (140-400); Red Blood Count 2.99 M/mcL (4.19-5.50); Red Cell Distribution Width 16.5 % (11.5-14.5); Segmented Neutrophils % 78.5 %; White Blood Count 10.3 K/mcL (4.3-11.1)
[2022-01-18 05:18] LABS: Calcium 7.9 mg/dL (8.6-10.3); Potassium 3.9 mEq/L (3.5-5.1)
[2022-01-18] MEDS: *HR* Heparin 5,000 UNIT/ML VIAL SQ SCH ×2 (05:52→14:13)
[2022-01-18] MEDS: cefTRIAXone 2,000 MG in 0.9 % Sodium Chloride 20 ML IVP SCH (09:00)
[2022-01-18] MEDS: rOPINIRole 1 MG, rOPINIRole 3 MG PO SCH ×2 (09:00→14:13)
[2022-01-18] MEDS: Carbidopa/Levodopa 25/100 TABLET PO SCH ×2 (09:00→14:13)
[2022-01-18 10:54] VITALS: BP 112/71; PULSE 75; TEMP 98.3; O2SAT 99
== END 2022-01-18 14:30 | disposition home or self-care (01) | DRG 871 ==
LOC: 2ANU
PROVIDERS: ADMIT Internal Medicine; ATTEND Internal Medicine